=== PATIENT | male | born 1960 | race Caucasian/White ===

== ENCOUNTER → 2018-02-24 | Outpatient (CLI) | payer OTHER ==
[2018-02-24 11:33] LABS: ALBUMIN 4.4 gm/dl (3.4-5.0); ALT/SGPT 53 U/L (12-78); BLOOD UREA NITROGEN 20 mg/dl (7-18); CALCIUM 9.2 mg/dl (8.5-10.1); CARBON DIOXIDE 27 mmol/L (21-32); CHOLESTEROL 175 mg/dl (0-200); CREATININE 1.16 mg/dl (0.60-1.40); GLUCOSE 110 mg/dl (70-99); POTASSIUM 4.1 mmol/L (3.5-5.1); SODIUM 136 mmol/L (136-145)
[2018-02-24 11:37] LABS: ALKALINE PHOSPHATASE 91 U/L (45-117); AST/SGOT 29 U/L (15-37); LDL CHOLESTEROL CALCULATED 112 mg/dl; TOTAL PROTEIN 7.9 gm/dl (6.4-8.2)
== END | disposition home or self-care (01) ==
LOC: C.LABBC 08:20
PROVIDERS: ATTEND Nurse Practitioner Adult Health
DX: Z00.00 Encounter for general adult medical examination without abnormal findings (principal); Z12.5 Encounter for screening for malignant neoplasm of prostate